=== PATIENT | female | born 1970 | race Caucasian/White ===

== ENCOUNTER 2017-01-31 08:33 | Outpatient (CLI) | payer OTHER ==
[2017-01-31] MEDS ORDERED: ISOVUE-370 76%-LOCM 1 ML ONE (10:06)
--- NOTE | 2017-01-31 12:40 | CT ---
CONTRAST ENHANCED CT CHEST: HISTORY: This 46-year-old presents with a history of pulmonary nodules. The patient apparently has had previo us comparison studies in [place]; however, they were not submitted for interpretation. Without pr evious old studies, I have no study to compare the present findings with. FINDINGS: Contrast-enhanced CT of the chest was performed. There is a right middle lobe approximately 6.5 mm s oft tissue lesion as well as a right lower lobe approximately 6.5 mm lesion also present. Without pr evious old studies, I have no exam to compare this present study. Therefore, a followup CT of the est is recommended in 3-4 months for followup. IMPRESSION: There are 6.5 mm soft tissue lesions in the right middle lobe and right lower lobe. POS: [facility]
== END 2017-01-31 08:34 | disposition home or self-care (01) ==
LOC: CT 08:33
PROVIDERS: ATTEND Family Medicine
DX: R91.8 Other nonspecific abnormal finding of lung field (principal); R06.2 Wheezing; R06.02 Shortness of breath; F17.210 Nicotine dependence, cigarettes, uncomplicated
CPT/HCPCS: 71260

== ENCOUNTER 2017-03-19 10:56 | Day surgery (SDC) | payer OTHER ==
[2017-03-19] MEDS ORDERED: Lidocaine 1% PF 5 ML VIAL ONE (12:30)
--- NOTE | 2017-03-19 14:10 | OP ---
DATE OF PROCEDURE: 03/19/2017 SURGEON: Fabio Gonzalez M.D. PROCEDURE: Esophagogastroduodenoscopy with biopsy and colonoscopy with biopsy. PREOPERATIVE DIAGNOSIS: Epigastric to periumbilical abdominal pain and chronic diarrhea. OPERATIVE DETAIL: Informed consent was obtained from the patient. She was sedated with total intrav enous anesthesia. The bite block was placed and the endoscope was advanced easily to the second port ion of the duodenum and retroflexion was performed in the stomach. The esophagus was normal. The st omach was normal including retroflexed views. The pylorus and first and second portions of the duode num were normal. Random biopsies were taken from the second portion of the duodenum to rule out henny ac disease. The patient was turned around. Rectal exam was performed and was normal. The colonoscope was advanc ed to the terminal ileum without difficulty. The preparation quality was fair to good. The mucosa o f the terminal ileum was normal. The ileocecal valve and appendiceal orifice were clearly identified . The colonic mucosa had a few small diverticula in the left colon. Retroflexed views in the rectum revealed small internal hemorrhoids. The remainder of the colonic mucosa was normal. IMPRESSION: 1. Normal esophagogastroduodenoscopy. Duodenal biopsies taken to rule out celiac disease. 2. Small internal hemorrhoids. 3. Mild diverticulosis. 4. Otherwise normal colonoscopy to the terminal ileum. Random biopsies were taken from the colon to rule out microscopic colitis. RECOMMENDATIONS: 1. Await histopathology. 2. Follow up in the office in around 4 weeks. 3. Repeat colonoscopy in 10 years for screening.
== END 2017-03-19 14:30 | disposition home or self-care (01) ==
LOC: SDC 10:56
PROVIDERS: ATTEND Internal Medicine Gastroenterology
DX: K52.9 Noninfective gastroenteritis and colitis, unspecified (principal); K29.80 Duodenitis without bleeding; K64.8 Other hemorrhoids; K57.30 Diverticulosis of large intestine without perforation or abscess without bleeding; J45.909 Unspecified asthma, uncomplicated; F17.210 Nicotine dependence, cigarettes, uncomplicated; I10 Essential (primary) hypertension; K21.9 Gastro-esophageal reflux disease without esophagitis; E66.9 Obesity, unspecified; F32.9 Major depressive disorder, single episode, unspecified; H52.00 Hypermetropia, unspecified eye; H52.209 Unspecified astigmatism, unspecified eye; H52.4 Presbyopia; Z68.42 Body mass index [BMI] 45.0-49.9, adult; Z79.818 Long term (current) use of other agents affecting estrogen receptors and estrogen levels; Z88.6 Allergy status to analgesic agent; Z87.442 Personal history of urinary calculi
CPT/HCPCS: 88305

== ENCOUNTER 2017-08-08 07:48 | Outpatient (CLI) | payer OTHER ==
[2017-08-08] MEDS ORDERED: ISOVUE-370 76%-LOCM 1 ML ONE (11:21)
== END 2017-08-08 07:49 | disposition home or self-care (01) ==
LOC: BICCT 07:48
PROVIDERS: ATTEND Family Medicine
DX: R91.8 Other nonspecific abnormal finding of lung field (principal); N28.89 Other specified disorders of kidney and ureter
CPT/HCPCS: 71260

== ENCOUNTER 2018-01-03 08:41 | Outpatient (CLI) | payer OTHER ==
--- NOTE | 2018-01-03 10:47 | CT ---
CT OF THE ABDOMEN AND PELVIS WITH IV CONTRAST: INDICATION: History of diarrhea and abdominal pain. COMPARISON: Prior CT of the thorax dated 01/31/2017. FINDINGS: There is a small 5-6 mm pulmonary nodule within the right lower lobe which is stable to the compariso n exam. There is fatty infiltration of the liver. There is a 1.3 cm nodule involving the right adrenal gland which is stable but incompletely characterized on the current study. Pancreas, left adrenal gland, spleen, and kidneys are normal-appearing. There is a 1.8 cm stone with in the left renal pelvis. Visualized bladder is normal-appearing. There are a few scattered diverticula involving the colon without evidence of active diverticulitis. There is a fat-containing umbilical hernia. There is mild scoliosis involving the thoracolumbar spine. No acute fracture or subluxation is evid ent. There is scattered degenerative and osteoarthritic change. IMPRESSION: 1. Large staghorn calculus within the left renal pelvis measuring 1.8 cm. The left large staghorn c alculus appears slightly larger than on a comparison CT dated 07/29/2017. 2. Fatty liver. 3. Right adrenal nodule incompletely characterized on the current study. If clinically indicated, f ollowup CT of the abdomen utilizing adrenal mass protocol would be helpful to further characterize th is lesion. 4. A 5-6 mm right lower lobe pulmonary nodule stable from a comparison CT dated 01/31/2017. POS: [facility]
== END 2018-01-03 08:42 | disposition home or self-care (01) ==
LOC: CT 08:41
PROVIDERS: ATTEND Family Medicine
DX: K52.9 Noninfective gastroenteritis and colitis, unspecified (principal); K76.0 Fatty (change of) liver, not elsewhere classified; N20.0 Calculus of kidney; R91.1 Solitary pulmonary nodule; E27.8 Other specified disorders of adrenal gland
CPT/HCPCS: 74177

== ENCOUNTER 2018-02-07 09:16 | Outpatient (CLI) | payer OTHER ==
--- NOTE | 2018-02-07 13:02 | CT ---
CT ABDOMEN WITH AND WITHOUT CONTRAST: HISTORY: Right adrenal mass. COMPARISON: CT abdomen and pelvis 01/03/2018. TECHNIQUE: CT of the abdomen performed prior to and after the intravenous administration of contrast. FINDINGS: A nodule in the right lung base is similar without significant interval growth. No other pulmonary n odule in the lung base. No pleural effusion. No pericardial effusion. Diffuse hepatic steatosis. Spleen and pancreas unremarkable. No retroperitoneal adenopathy. The aortoiliac contour is normal. Fat-containing ventral hernia. Staghorn left renal pelvis is similar in size with some urothelial thickening, likely chronic inflamm ation. No abnormal renal enhancing mass. On the delayed phase of contrast, there is no contrast in the left ureter likely due to partial obstruction. There is dilatation of the left calyces. There is a small right adrenal body mass measuring approximately precontrast Hounsfield units of 7, p ostcontrast Hounsfield units of 38, and 15 minute delayed Hounsfield units of 13. This corresponds t o an 880.6% absolute washout and relative washout of 65.8%, both diagnostic with an adenoma. No dilated loops of bowel in the abdomen. IMPRESSION: 1. 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 No further followup is recommended . 2. Partial obstructive left renal pelvis staghorn calculus. 3. Diffuse hepatic steatosis. 4. Fat-containing ventral hernia. POS: [facility]
== END 2018-02-07 09:17 | disposition home or self-care (01) ==
LOC: BICCT 09:16
PROVIDERS: ATTEND Family Medicine
DX: D35.01 Benign neoplasm of right adrenal gland (principal); N20.0 Calculus of kidney; K76.0 Fatty (change of) liver, not elsewhere classified; K43.9 Ventral hernia without obstruction or gangrene
CPT/HCPCS: 74170

== ENCOUNTER 2018-05-20 07:59 | Day surgery (SDC) | payer OTHER ==
[2018-05-19 12:33] VITALS: BMI 47.2
[2018-05-20 09:15] LABS: #Eosinphils 0.2 thou/uL (0.0-0.7); #Monocytes 0.3 thou/uL (0.11-0.59); #Neutrophils 3.2 thou/uL (1.40-6.50); %Basophils 0.7 % (0.0-1.0); %Eosinophils 3.1 % (0.0-10.0); %Lymphocytes 35.5 % (21.0-51.0); %Monocytes 5.9 % (0.0-10.0); %Neutrophils 54.8 % (42.0-75.0); Hemoglobin 12.4 g/dL (12.0-16.0); Mean Corpuscular HGB CONC 33.9 g/dL (32.0-36.0); Mean Corpuscular Hemoglobin 31.6 pg (27.0-31.0); Mean Platelet Volume 6.6 fL (7.4-10.4); Platelet Count 219 thou/uL (130-400); RBC Distribution Width 11.6 % (11.5-14.5); Red Blood Cell (RBC) Count 3.92 mill/uL (4.20-5.40); White Blood Cell (WBC) Count 5.8 thou/uL (4.8-10.8)
--- NOTE | 2018-05-20 09:24 | RAD ---
EXAM: ABDOMEN ONE VIEW: History: Left renal calculi. Comparison: 02-07-18 FINDINGS: Large oval circumscribed calculus in the left upper renal collecting system measuring 1.2 x 2.1 cm, s table from prior CT. No overt right renal calculi. IMPRESSION: Circumscribed left renal calculus. POS: [facility]
[2018-05-20] MEDS ORDERED: Iothalamate Meglumine 60% 50 ML VIAL FS ONE (09:33)
[2018-05-20 09:36] LABS: Anion Gap 11 mmol/L (10-20); BUN (Urea Nitrogen) 15 mg/dL (7.0-18.7); Calc. Creatinine Clearance 179 mL/min (70-130); Calcium 9.5 mg/dL (7.8-10.44); Carbon Dioxide 26 mmol/L (22-29); Chloride 107 mmol/L (98-107); Estimated GFR-MDRD 82; Glucose 94 mg/dL (70-105); Potassium 3.9 mmol/L (3.5-5.1); Sodium 140 mmol/L (136-145)
[2018-05-20] MEDS ORDERED: Fentanyl 100 MCG/2 ML VIAL ONE ×2 (09:36→11:41)
[2018-05-20] MEDS ORDERED: Furosemide 20 MG/2 ML VIAL ONE (10:37)
[2018-05-20] MEDS ORDERED: PROPOFOL 200 MG/20 ML VIAL ONE (11:10)
[2018-05-20] MEDS ORDERED: Glycopyrrolate 0.2 MG/ML 5 ML SYRINGE ONE (11:10)
[2018-05-20] MEDS ORDERED: Lidocaine 1% PF 5 ML VIAL ONE (11:10)
[2018-05-20] MEDS ORDERED: Rocuronium Bromide 10 MG/ML (10ML VIAL) ONE (11:10)
[2018-05-20] MEDS ORDERED: Dexamethasone 20 MG/5 ML VIAL ONE (11:10)
[2018-05-20] MEDS ORDERED: Ondansetron PF 4 MG/2 ML Vial ONE (11:10)
[2018-05-20] MEDS ORDERED: HYDROcodone/Acetaminophen 5/325 mg Tablet ONE (14:07)
[2018-05-20] MEDS ORDERED: diphenhydrAMINE 25 MG CAP ONE (14:09)
--- NOTE | 2018-05-20 18:13 | OP ---
DATE OF PROCEDURE: 05/20/2018 PREOPERATIVE DIAGNOSES: Large left renal pelvic stone with intermittent renal colic and mild hydro. POSTOPERATIVE DIAGNOSES: Large left renal pelvic stone with intermittent renal colic and mild hydro. PROCEDURES PERFORMED: Cystoscopy, left retrograde pyelogram, insertion of left ureteral stent 28 x 6, and left extracorporeal shockwave lithotripsy. ANESTHESIA: General, ET tube. COMPLICATIONS: None. SPECIMEN: None. DRAIN REMAINING: Internal double-J 28 x 6. FINDINGS: Stent placed with a coil in the upper pole and an adequate fragmentation of a large 1.7 cm renal pelvic stone. INDICATIONS FOR PROCEDURE: The patient is a 47-year-old inmate, who was sent to id after being seen with renal colicky pain, mild hydro, found to have a 1.7 cm renal pelvic stone that was likely causing intermittent obstruction and micro hematuria and she was set up for definitive therapy. DESCRIPTION OF PROCEDURE: The patient was brought into the room by Anesthesia, laid on the table in supine position. After receiving general anesthetic, her legs were placed in lithotomy position and perineum was prepped and draped in sterile fashion. Using a 21-[place] cystoscope and a and a 30 degree lens, the urethra was first traversed and the bladder was inspected. No lesions were noted. The ureteral orifices were noted in normal position. Left was intubated with Pollack catheter and retrograde pyelogram was performed. No filling defects were noted. Measurements were then taken for a 6 x 28 double-J for the end of the case. At this point, a wire was passed up into the renal pelvis and the [place] catheter removed and a 6 x 28 double-J was placed. The upper coil hung in the upper pole, which was somewhat distended and hydronephrotic, so felt that was a good place to leave it at this point, as opposed to trying to bring it down and a good coil was visualized in the bladder with effuse noted from the stent. The scope was broken apart, bladder drained, and scope removed in its entirety. The patient tolerated this portion of procedure and was returned to supine position. She was positioned such that the lithotriptor could identify the stone in multiple planes. Then, a total of 3000 shocks for the maximum level of 5/6 at a maximum rate of 60 per minute were then delivered starting at the medial edge of the stone and going more laterally. Good fragmentation was noted. The patient tolerated the procedure well, was then awakened and transferred to PACU in stable condition. Job ID: [id number] MTDD
== END 2018-05-20 15:30 | disposition home or self-care (01) ==
LOC: SDC 07:59
PROVIDERS: ATTEND Urology
PROC: 0TF7XZZ Fragmentation in Left Ureter, External Approach (ICD-10-PCS; principal; 2018-05-20)
PROC: 0T778DZ Dilation of Left Ureter with Intraluminal Device, Via Natural or Artificial Opening Endoscopic (ICD-10-PCS; principal; 2018-05-20)
DX: N13.2 Hydronephrosis with renal and ureteral calculous obstruction (principal); I10 Essential (primary) hypertension; E11.9 Type 2 diabetes mellitus without complications; G47.33 Obstructive sleep apnea (adult) (pediatric); J44.9 Chronic obstructive pulmonary disease, unspecified; F41.9 Anxiety disorder, unspecified; Z87.891 Personal history of nicotine dependence; Z91.018 Allergy to other foods; Z88.5 Allergy status to narcotic agent; Z79.84 Long term (current) use of oral hypoglycemic drugs; Z79.82 Long term (current) use of aspirin; Z79.899 Other long term (current) drug therapy; Z98.890 Other specified postprocedural states
CPT/HCPCS: 36415; 74018; 80048; 82088; 82533; 85025; 93005; 93010; 94640; C1758; J1100; J1940; J2001; J2405; J2704; J3010; J7620; Q0163; Q9961

== ENCOUNTER 2018-06-25 05:45 | Day surgery (SDC) | payer OTHER ==
--- NOTE | 2018-06-24 09:53 | HP ---
HISTORY OF PRESENT ILLNESS: The patient is a 47-year-old right-handed female with a several-month history of pain in her left elbow with radiation to her left hand and wrist with numbness in her ring and little finger. 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 She has had persistent symptoms despite rest and use of anti-inflammatory medications. PAST MEDICAL HISTORY: The patient has history of borderline diabetes and history of hypertension. She is currently a full-time student at the [employer]. CURRENT MEDICATIONS: Include, 1. Albuterol. 2. Lisinopril. 3. Lipitor. 4. Metformin. 5. Low-dose aspirin. 6. Zoloft. ALLERGIES: SHE IS ALLERGIC TO BANANAS AND TRAMADOL. FAMILY HISTORY: Otherwise unremarkable. SOCIAL HISTORY: Otherwise unremarkable. REVIEW OF SYSTEMS: Otherwise unremarkable. PHYSICAL EXAMINATION: GENERAL: Reveals a healthy heavy-set female. HEENT: Unremarkable. NECK: Supple. CHEST: Clear. HEART: Regular rate and rhythm. ABDOMEN: Soft, nontender. PELVIC, RECTAL, AND BREASTS: Deferred. EXTREMITIES: Pertinent findings related to the left upper extremity. Examination of the left elbow reveals no swelling, bruising, or atrophy. There is full range of motion. There is no instability. There is a positive Tinel sign over the cubital tunnel. There is decreased sensation in ulnar nerve distribution and slight weakness of the ulnar intrinsic muscles of the left hand. Pulses are 2+. There is full range of motion of the wrist with no point tenderness. There is a negative Tinel sign at the carpal tunnel and negative Phalen test. DIAGNOSTIC STUDIES: Electrodiagnostic studies performed by Dr. Adan reveal moderately severe cubital tunnel syndrome. IMPRESSION: Cubital tunnel syndrome, left elbow. PLAN: Cubital tunnel release with medial epicondylectomy. The nature of the surgery, length of recovery, and potential complications such as infection, loss of motion, incomplete relief, nerve injury, recurrence, need for additional treatment, repeat surgery have been discussed in detail. Job ID: [id number]
[2018-06-24 14:02] VITALS: BMI 45.9
[2018-06-25] MEDS ORDERED: Bupivacaine HCl 0.5%/Epinephrine 1:200,000/PF 30 ml Vial ONE (06:56)
[2018-06-25] MEDS ORDERED: Bupivacaine PF 0.5% 30 ML VIAL ONE (06:56)
[2018-06-25] MEDS ORDERED: Fentanyl 100 MCG/2 ML VIAL ONE ×2 (07:30→09:13)
[2018-06-25] MEDS ORDERED: Midazolam HCl 2 mg/2 ml Vial ONE (07:30)
[2018-06-25] MEDS ORDERED: PROPOFOL 200 MG/20 ML VIAL ONE (09:43)
[2018-06-25] MEDS ORDERED: Ketorolac Tromethamine 30 MG/ML VIAL ONE (09:43)
[2018-06-25] MEDS ORDERED: Ondansetron PF 4 MG/2 ML Vial ONE (09:43)
[2018-06-25] MEDS ORDERED: Morphine 4 MG/ML VIAL ONE (10:28)
--- NOTE | 2018-06-25 15:05 | OP ---
DATE OF PROCEDURE: 06/25/2018 ANESTHESIA: General. PREOPERATIVE DIAGNOSIS: Left cubital tunnel syndrome. POSTOPERATIVE DIAGNOSIS: Left cubital tunnel syndrome. PROCEDURE PERFORMED: Left cubital tunnel release with medial epicondylectomy. DESCRIPTION OF PROCEDURE: After satisfactory anesthesia was induced in supine position, the patient was prepped and draped in the routine manner. The left arm was elevated and exsanguinated with an Esmarch bandage, and the tourniquet inflated to 250 mmHg. A longitudinal incision was made centered over the medial epicondyle, carried down through the subcutaneous tissues, bleeding points were controlled with Bovie cautery and bipolar cautery. Using sharp and blunt dissection, the medial condyle was exposed and then the cubital tunnel opened with sharp and blunt dissection and divided from the lateral intermuscular septum proximally and carried distally opening the interval between the two heads of flexor carpi ulnaris tendon. There was moderate constriction beneath and within the cubital tunnel. The nerve was gently freed up and made free and mobile, but no attempt was made to skeletonize the nerve. The medial epicondyle was then subperiosteal exposed and then excised with an osteotome, flushed with the shaft of the humerus. This was irrigated and the deep fascia was closed over the exposed bone with #1 Vicryl. With the elbow in 90 degrees of flexion, this allowed the nerve to slide anteriorly and the nerve appeared to be free and mobile without constriction. The wound was again irrigated and the subcutaneous tissues were closed with interrupted #1 Vicryl and the skin was closed with running subcuticular 3-0 V-Loc and SurgiSeal skin adhesive. A sterile dressing was applied, and the tourniquet was deflated after 40 minutes. The hand promptly pinked up. The patient was immobilized in a long-arm plaster splint and arm sling. She was awakened and taken to the recovery room in stable condition. There were no apparent intraoperative complications. The estimated blood loss was negligible. The patient will be discharged home in satisfactory condition, started on ice and elevation, given written cast care instructions. She was given a prescription for [place] 5 for pain 30 tablets. She will be rechecked in my office in 2 weeks or sooner, if there are any problems prior to that time. Job ID: [id number]
== END 2018-06-25 11:35 | disposition home or self-care (01) ==
LOC: SDC 05:45
PROVIDERS: ATTEND Orthopaedic Surgery
PROC: 0PBG0ZZ Excision of Left Humeral Shaft, Open Approach (ICD-10-PCS; principal; 2018-06-25)
PROC: 01N40ZZ Release Ulnar Nerve, Open Approach (ICD-10-PCS; principal; 2018-06-25)
DX: G56.22 Lesion of ulnar nerve, left upper limb (principal); I10 Essential (primary) hypertension; R73.03 Prediabetes; Z79.82 Long term (current) use of aspirin; Z79.84 Long term (current) use of oral hypoglycemic drugs; Z79.899 Other long term (current) drug therapy; Z88.5 Allergy status to narcotic agent; Z88.8 Allergy status to other drugs, medicaments and biological substances; Z91.018 Allergy to other foods; Z98.890 Other specified postprocedural states
CPT/HCPCS: J0670; J0690; J2250; J2270; J3010; S0020

== ENCOUNTER 2018-08-07 08:24 | Outpatient (CLI) | payer OTHER ==
--- NOTE | 2018-08-07 09:22 | CT ---
CT CHEST WITH IV CONTRAST: Date: 08/07/18 HISTORY: Pulmonary lung nodule. COMPARISON: 01/31/17 and 08/08/17. FINDINGS: The 6-7 mm nodule in the right middle lobe (image 49) and 6-7 mm nodule in the right lower lobe (imag e 56) are stable. No new pulmonary nodules are seen. Prominent lymph nodes in the right hilum measuri ng up to 8 mm are again seen. No mediastinal, hilar, or axillary mass or lymphadenopathy is identifie d. No pleural or pericardial effusions are seen. There are mild degenerative changes in the spine. IMPRESSION: Stable pulmonary nodules. POS: [facility]
== END 2018-08-07 08:25 | disposition home or self-care (01) ==
LOC: BICCT 08:24
PROVIDERS: ATTEND Family Medicine
DX: R91.8 Other nonspecific abnormal finding of lung field (principal)
CPT/HCPCS: 71260

== ENCOUNTER 2018-08-22 09:39 | Day surgery (SDC) | payer OTHER ==
[2018-08-21 11:11] VITALS: BMI 44.6
[2018-08-22] MEDS ORDERED: Ondansetron PF 4 MG/2 ML Vial ONE (10:44)
[2018-08-22] MEDS ORDERED: PROPOFOL 200 MG/20 ML VIAL ONE (10:44)
[2018-08-22] MEDS ORDERED: Rocuronium Bromide 10 MG/ML (10ML VIAL) ONE (10:44)
[2018-08-22] MEDS ORDERED: Succinylcholine Chloride 20 MG/ML 10 ml SYRINGE FS ONE (10:44)
[2018-08-22] MEDS ORDERED: Lidocaine 1% PF 5 ML VIAL ONE (10:44)
[2018-08-22] MEDS ORDERED: Glycopyrrolate 0.2 MG/ML 5 ML SYRINGE ONE (10:44)
[2018-08-22] MEDS ORDERED: Dexamethasone 20 MG/5 ML VIAL ONE (10:44)
[2018-08-22] MEDS ORDERED: Ketorolac Tromethamine 30 MG/ML VIAL ONE (10:44)
[2018-08-22 10:53] LABS: #Basophils 0.1 thou/uL (0.0-0.2); #Eosinphils 0.2 thou/uL (0.0-0.7); #Lymphocytes 2.1 thou/uL (1.20-3.40); #Monocytes 0.4 thou/uL (0.11-0.59); %Eosinophils 3.6 % (0.0-10.0); %Monocytes 6.9 % (0.0-10.0); %Neutrophils 52.5 % (42.0-75.0); Hemoglobin 12.9 g/dL (12.0-16.0); Mean Corpuscular HGB CONC 33.5 g/dL (32.0-36.0); Mean Corpuscular Hemoglobin 30.8 pg (27.0-31.0); Mean Platelet Volume 6.6 fL (7.4-10.4); Platelet Count 259 thou/uL (130-400); RBC Distribution Width 11.9 % (11.5-14.5); Red Blood Cell (RBC) Count 4.19 mill/uL (4.20-5.40); White Blood Cell (WBC) Count 5.7 thou/uL (4.8-10.8)
[2018-08-22 11:01] LABS: Prothrombin Time 12.7 SEC (12.0-14.7)
[2018-08-22 11:25] LABS: Anion Gap 15 mmol/L (10-20); BUN (Urea Nitrogen) 15 mg/dL (7.0-18.7); Calc. Creatinine Clearance 149 mL/min (70-130); Calcium 9.9 mg/dL (7.8-10.44); Carbon Dioxide 25 mmol/L (22-29); Chloride 103 mmol/L (98-107); Estimated GFR-MDRD 72; Glucose 90 mg/dL (70-105); Potassium 4.2 mmol/L (3.5-5.1)
[2018-08-22 11:41] LABS: Sodium 139 mmol/L (136-145)
[2018-08-22] MEDS ORDERED: Levofloxacin 500 mg/D5W 100 ml Premix Bag ONE (12:02)
[2018-08-22] MEDS ORDERED: Fentanyl 100 MCG/2 ML VIAL ONE (12:14)
[2018-08-22] MEDS ORDERED: Midazolam HCl 2 mg/2 ml Vial ONE (12:14)
[2018-08-22] MEDS ORDERED: Iothalamate Meglumine 60% 50 ML VIAL FS ONE (12:38)
[2018-08-22] MEDS ORDERED: Phenazopyridine HCl 97.5 MG TABLET ONE (13:51)
[2018-08-22] MEDS ORDERED: HYDROcodone/Acetaminophen 5/325 mg Tablet ONE (14:59)
--- NOTE | 2018-08-22 16:40 | OP ---
DATE OF PROCEDURE: 08/22/2018 SERVICE: Urology. PREOPERATIVE DIAGNOSES: Left renal stone. POSTOPERATIVE DIAGNOSIS: Left renal stone. PROCEDURES PERFORMED: Left ureteroscopy, laser lithotripsy, basket extraction of stone, and placement of 6 x 26 double-J stent. INDICATION FOR PROCEDURE: Ms. Evans is a 48-year-old white female, who initially presented with a left renal stone. She is currently asymptomatic. We discussed treatment including lithotripsy versus ureteroscopy. She elected for ureteroscopy with all risks and benefits discussed. She has agreed to proceed forward. DESCRIPTION OF PROCEDURE: After identification of armband and verification of consent, the patient was brought back to the operating room, where she underwent general anesthesia with endotracheal intubation. She was then placed in dorsal lithotomy position, prepped and draped in usual sterile fashion. After appropriate time-out, a lubricated 22-[place] rigid cystoscope introduced per urethra into the bladder. Attention was turned to the left ureteral orifice, which was cannulated with a 0.035 Sensor wire up to the level of renal pelvis. The dual-lumen catheter was then advanced over the Sensor wire up to the level of the proximal ureter. An Amplatz Super Stiff wire was then placed through the second lumen up to the level of renal pelvis. The dual-lumen was then removed. The Sensor wire was affixed to the drapes as a safety wire. An 11/13-[place] x 36 cm ureteral access sheath was advanced over the Super Stiff wire up to the level of the proximal ureter. Inner cannula was removed, leaving the outer sheath and Sensor wire in place. A flexible disposable digital ureteroscope was then brought in and a full pyeloscopy was performed. The stones were noted in the lower pole and was actually a conglomeration of stones rather than one stone. The smaller pieces were basketed out directly and the larger pieces deposited up in the upper pole, where it was easier to work on. 200 micron laser fibers were then used to fragment the larger stones into smaller pieces and then individually basketed out with a 1.9-[place] ZeroTip Nitinol basket. Upon completion, there were no stone fragments remaining over a millimeter. The remainder of the calyces were clear of any stone debris. Pull-back ureteroscopy was employed, no additional stones were found within the kidney or ureter. All instruments were removed and the stent was then loaded over the Sensor wire and placed under fluoroscopic guidance into the kidney. There was a good curl in the kidney and good curl in the bladder. The cystoscope was then introduced back into the bladder, and the curl was visualized directly in the bladder. The bladder was emptied and the cystoscope removed. The patient was then awakened and taken to PACU for Recovery in stable condition. COMPLICATIONS: None. ESTIMATED BLOOD LOSS: Minimal. RETAINED TUBES AND DRAINS: 6 x 26 double-J stent on the left. SPECIMEN: Stone for stone analysis. DISPOSITION: The patient will be discharged home and follow up with me in approximately 1 week for cysto stent removal. Job ID: [id number]
[2018-08-27 15:10] LABS: CA Oxalate Monohydrate 80 % (.); CA Phosphate 20 % (.); Color Tan (.)
== END 2018-08-22 16:47 ==
LOC: SDC 09:39
PROVIDERS: ATTEND Urology
DX: N20.0 Calculus of kidney (principal); I10 Essential (primary) hypertension; E78.00 Pure hypercholesterolemia, unspecified; F41.9 Anxiety disorder, unspecified; F32.9 Major depressive disorder, single episode, unspecified; G47.33 Obstructive sleep apnea (adult) (pediatric); J44.9 Chronic obstructive pulmonary disease, unspecified; R73.03 Prediabetes; Z79.82 Long term (current) use of aspirin; Z79.84 Long term (current) use of oral hypoglycemic drugs; Z79.899 Other long term (current) drug therapy; Z99.89 Dependence on other enabling machines and devices; Z87.891 Personal history of nicotine dependence; Z88.6 Allergy status to analgesic agent; Z91.018 Allergy to other foods
CPT/HCPCS: 76000; 80048; 82365; 85025; 85610; 85730; 88300; C1758; C1769; J1956; J2250; J3010; J7620

== ENCOUNTER 2018-08-27 08:49 | Outpatient (CLI) | payer OTHER ==
--- NOTE | 2018-08-27 14:17 | MMO ---
Bilateral MAMMO Bilat Screen DDI. CLINICAL HISTORY: Patient is 48 years old and is seen for screening. The patient has no family history of breast cancer. The patient has no personal history of cancer. The patient has a history of Breast reduction in 2013. VIEWS: The views performed were: bilateral craniocaudal; bilateral mediolateral oblique; and cleavage view. FILMS COMPARED: The present examination has been compared to a prior imaging study performed at [facility] on 11/10/2015. This study has been interpreted with the assistance of computer-aided detection. MAMMOGRAM FINDINGS: There are scattered fibroglandular densities. There are no suspicious masses, suspicious calcifications, or new areas of architectural distortion. IMPRESSION: THERE IS NO MAMMOGRAPHIC EVIDENCE OF MALIGNANCY. A ROUTINE FOLLOW-UP MAMMOGRAM IN 1 YEAR IS RECOMMENDED. ACR BI-RADS Category 1 - Negative MAMMOGRAPHY NOTE: 1. A negative mammogram report should not delay a biopsy if a dominant of clinically suspicious mass is present. 2. Approximately 10% to 15% of breast cancers are not detected by mammography. 3. Adenosis and dense breasts may obscure an underlying neoplasm.
== END 2018-08-27 08:50 | disposition home or self-care (01) ==
LOC: SCSMAMMO 08:49
PROVIDERS: ATTEND Family Medicine
DX: Z12.31 Encounter for screening mammogram for malignant neoplasm of breast (principal); Z98.890 Other specified postprocedural states
CPT/HCPCS: 77067

== ENCOUNTER 2018-10-17 12:20 | Outpatient (CLI) | payer OTHER ==
--- NOTE | 2018-10-17 13:27 | ULT ---
Renal sonogram HISTORY: Flank pain. Stones. FINDINGS: Right kidney measures up to 11.0 cm. No hydronephrosis. No solid masses or stones are demon strated sonographically. Left kidney measures up to 10.4 cm cyst at the superior pole is 1.5 cm. No hydronephrosis. Stone not visualized sonographically. Urinary bladder has normal appearance with bilateral ureteral jets documented. IMPRESSION: No evidence of urinary tract obstruction. Small left renal cyst
== END 2018-10-17 12:21 | disposition home or self-care (01) ==
LOC: BICULT 12:20
PROVIDERS: ATTEND Family Medicine
DX: N39.46 Mixed incontinence (principal); N28.1 Cyst of kidney, acquired
CPT/HCPCS: 76770